=== PATIENT | female | born 1990 | race Caucasian/White ===

== ENCOUNTER → 2017-06-25 | Outpatient (CLI) | payer OTHER ==
[~2017-06-25] MED LIST: IBUP200; IBUP800 PO; LORA10ER PO; OXYACE5T PO; PRED10 PO; RANI150 PO
== END | disposition home or self-care (01) ==
LOC: LAB EV 13:56
DX: L03.019 Cellulitis of unspecified finger (principal)
CPT/HCPCS: 87070; 87077; 87147; 87186; 87205

== ENCOUNTER 2021-12-20 14:41 | Emergency (ER) | payer OTHER ==
[~2021-12-20] VITALS: Ht 160 cm; Wt 61.2 kg
== END 2021-12-20 18:48 | disposition left against medical advice (07) ==
LOC: ER 14:41
DX: R51.9 Headache, unspecified (principal); R68.83 Chills (without fever); I49.9 Cardiac arrhythmia, unspecified; Z53.21 Procedure and treatment not carried out due to patient leaving prior to being seen by health care provider
CPT/HCPCS: 99281